=== PATIENT | male | born 1965 | race Caucasian/White ===

== ENCOUNTER 2019-09-24 10:29 | Outpatient (CLI) | payer SELFPAY ==
[~2019-09-24] VITALS: Ht 188 cm; Wt 118.2 kg
--- NOTE | ~2019-09-24 | HEMODYNAMI ---
PATIENT:KAREEM ABURTO MEDICAL RECORD: [id number] : 65 LOCATION:[facility] ADMISSION DATE: 09/24/19 Generatedon:09/24/201914:06 Patient name: KAREEM ABURTO Patient #: [id number] SSN: [id number] : 1965 Date of study: 09/24/2019 Page: Of Hemodynamic Procedure Report Patient Data Patient Demographics Procedure consent was obtained First Name: KAREEM Gender: Male Last Name: CRISELDA : 1965 [facility] Initial: TERESO Age: 53 year(s) Patient #: [id number] Race: SSN: [id number] Additional ID: [id number] Contact details [address]: [address] [place] [address] State: [place] City: [place] Zip code: [address] Past Medical History Allergies: No known allergies Admission Admission Data Admission Date: 09/24/2019 Admission Time: 10:29 Arrival Date: 09/24/2019 Arrival Time: 0:00 Admit Source: Other Height (in.): 74 BSA: 2.43 (m2) Height (cm.): 187.96 BMI: 33.38 (kg/m2) Weight (lbs.): 260 Weight (kg.): 117.93 Lab Results Lab Result Date: 09/24/2019 Lab Result Time: 0:00 Biochemistry Name Units Result Min Max BUN mg/dl 12 --(-*--)-- 7 18 Creatinine mg/dl 1.1 --(--*-)-- 0.6 1.3 eGFR ml/min 73.69942 *-(----)-- 90 120 NONAFRICAN CBC Name Units Result Min Max Hematocrit % 48.6 --(--*-)-- 42 54 Hemoglobin g/dl 16.2 --(--*-)-- 13.5 17.5 Procedure Procedure Types Cath Procedure Diagnostic Procedure LHC LHC w/Coronaries Procedure Description Procedure Date Procedure Date: 09/24/2019 Procedure Start Time: 13:45 Procedure End Time: 14:00 Procedure Staff Name Function Pierre Burden MD Performing Physician Mani Lynch RT Outbound Sales Consultant Iris Pacheco RT Monitor Anya Peñaloza RT Monitor [place] RT Scrub Sharon Silverman RT Scrub Vj Lee RN Nurse Indication Angina Procedure Data Cath Procedure Fluoroscopy Diagnostic fluoroscopy Total fluoroscopy Time: 2.8 time: 2.8 min min Diagnostic fluoroscopy Total fluoroscopy dose: 952 dose: 952 mGy mGy Contrast Material Contrast Material Type Amount (ml) Isovue 370 84 Entry Location Entry Primary Successful Side Size Upsize Upsize Entry Closure Villar ccessful Closure Location (Fr) 1 (Fr) 2 (Fr) Remarks Device Remarks Radial Right 6 Fr Mechanical artery Short Compression Estimated blood loss: 5 ml Diagnostic catheters Device Type Used For End Catheter Placement DIAGNOSTIC Grayson 110cm 5 Procedure Fr catheter ([id number]) Procedure Complications No complications Procedure Medications Medication Administration Route Dosage 0.9% NaCl I.V. 100 ml/hr Oxygen etCO2 Nasal cannula 2 l/min Heparin Flush Bag added to field 2 bags (1000units/500ml NS) Lidocaine 2% added to field 20 Radial Cocktail added to field 1 syringe (Verapamil 2mg/Nitro 400mcg/Heparin 1500units) Versed I.V. 2 mg Fentanyl I.V. 100 mcg Benadryl I.V. 50 mg Radial Cocktail I.A. 1 syringe (Verapamil 2mg/Nitro 400mcg/Heparin 1500units) Versed I.V. 1 mg Hemodynamics Rest BSA: 2.43 (m2) HGB: 16.2 (g/dl) O2 Consumption: Estimated: 267.54 (ml/min) O2 Co nsumption indexed: Estimated:110.1 (ml/min/m) Heart Rate: 47 (bpm) Pressure Samples Time Site Value (mmHg) Purpose Heart Use Rate(bpm) 13:50 LV 114/8,8 Snapshot 81 13:50 LV 113/8,9 Snapshot 82 13:50 AO 100/77(88) Pullback 82 Gradients Valve Time Site Site 2 Mean SEP/DFP Peak To Heart Use 1 (mmHg) (sec/min) Peak Rate (mmHg) (bpm) Aortic 13:50 LV AO 6 17 82 100/77(88) Calculations Valve P-P Mean Valve Index Valve Source Name Gradient Area Flow (cm2) Aortic 6 6 Snapshots Pre Cath Intra NCS Post Cath Vital Signs Time Heart Resp SPO2 etCO2 NIBP (mmHg) Rhythm Pain Sedation Rate (ipm) (%) (mmHg) Status Level (bpm) 13:30:15 61 18 97 0 131/85(97) NSR 0 (11) 10(A) , No pain 13:34:31 61 17 97 35.4 122/76(97) NSR 0 (11) 10(A) , No pain 13:38:43 71 22 96 31.6 133/82(99) NSR 0 (11) 10(A) , No pain 13:42:57 56 21 98 33.9 130/82(100) NSR 0 (11) 10(A) , No pain 13:47:09 69 17 96 30.1 120/87(107) NSR 0 (11) 10(A) , No pain 13:51:15 82 16 92 33.1 113/81(97) NSR 0 (11) 10(A) , No pain 13:55:23 84 28 92 32.4 121/80(113) NSR 0 (11) 9(A) , No pain 13:59:37 80 12 91 37.7 106/74(95) NSR 0 (11) 9(A) , No pain Medications Time Medication Route Dose Verified Delivered Reason Notes Effectiveness by by 13:43:52 0.9% NaCl I.V. 100 Vj Vj Per ml/hr Jesus Lee physician RN RN 13:44:00 Oxygen etCO2 2 l/min Vj Vj for low 02 Nasal Lorigan Lorigan sats cannula RN RN 13:44:10 Heparin Flush added 2 bags Vj Vj used for Bag to Lorigan Lorigan procedure (1000units/500ml field RN RN NS) 13:44:20 Lidocaine 2% added 20ml Vj Vj for local to vial Lorigan Lorigan anesthetic field RN RN 13:45:23 Radial Cocktail added 1 Vj Vj used for (Verapamil to syringe Lorigan Lorigan procedure 2mg/Nitro field RN RN 400mcg/Heparin 1500units) 13:45:32 Versed I.V. 2 mg Vj Vj for sedation Jesus Lee RN RN 13:45:41 Fentanyl I.V. 100 mcg Vj Vj for sedation Jesus Lee RN RN 13:45:54 Benadryl I.V. 50 mg Vj Vj Per Jesus Lee physician RN RN 13:49:19 Radial Cocktail I.A. 1 Vj Pierre for (Verapamil syringe Evelynigan Jenise vasodilation 2mg/Nitro RN 400mcg/Heparin 1500units) 13:50:53 Versed I.V. 1 mg Vj Vj for sedation Jesus Lee RN floor care specialist Log Time Note 13:14:16 Admit Source: Other 13:15:08 Procedure Status Elective Heart Cath (OP). 13:15:12 Iris Pacheco RT(R) sent for patient. Start room use. 13:15:15 Time tracking: Regular hours (M-F 7:00 - 5:00) 13:15:19 Plan of Care:Hemodynamics will remain stable., Cardiac rhythm will remain stable., Comfort level will be maintained., Respiratory function will remain adequate., Patient/ family verbilizes understanding of procedure., Procedure tolerated without complication., Recovers from procedure without complications.. 13:16:14 Informed consent obtained and on chart 13:16:22 Arrival Date: 09/24/2019 12:00:00 AM 13:16:45 Patient Height : 74 inches 13:16:54 Patient Weight : 260 lbs 13:17:07 Diagnostic Cath Status : Elective 13:17:30 Indication : Angina 13:20:12 Patient received from Pre/Post Procedure Room to CCL 1 Alert and oriented. Tansferred to table in Supine position. 13:20:14 Warm blankets applied, and ester hugger turned on for patient comfort. 13:20:15 Correct patient and procedure confirmed by team. 13:20:25 H&P Date Dictated: 09/24/2019 Within 30 days and on chart.. 13:20:27 Pre-procedure instructions explained to patient. 13:20:29 Pre-op teaching completed and patient verbalized understanding. 13:20:31 Family in waiting room. 13:20:33 Patient NPO since Midnight. 13:20:41 Patient allergic to Indocin 13:21:20 Lab Result : BUN 12 mg/dl 13:21:20 Lab Result : Creatinine 1.1 mg/dl 13:21:20 Lab Result : eGFR NONAFRICAN 73.08288 ml/min 13:21:20 Lab Result : Hemoglobin 16.2 g/dl 13:21:20 Lab Result : Hematocrit 48.6 % 13:21:25 Lab results completed and on chart. 13:21:41 Stress Test: yes; abnormal ? 13:21:45 Stress Test: no; N/A ? 13:21:59 Risk of Mortality: .1 13:22:02 Risk of blood transfusion: .1 13:22:04 Risk of MONIE: .5 13:22:16 Alarms reviewed by R. N. 13:22:16 Sharps counted by scrub and verified by R.N. 13:22:27 IV patent on arrival in left forearm with 0.9% NaCl at [facility]. 13:22:30 Patient pain scale 0/10 ?. 13:22:34 Pre procedure: right dorsailis pedis pulse 2+ Normal; easily identifiable; not easily obliterated 13:22:40 ECG and BP/O2 sat monitors applied to patient. 13:22:48 Is the patient allergic to Iodine/contrast media? No. 13:22:50 Was the patient premedicated? Yes 13:22:51 Is patient on blood thinner?No 13:22:56 ACC The patient was administered the following blood thiners within the last 24 hours: None 13:22:59 Patient diabetic? No. 13:23:01 If diabetic: On Metformin? N/A 13:23:08 Previous problem with sedation/anesthesia? No ? 13:23:09 Snore? No 13:23:10 Sleep apnea? No 13:23:12 Deviated septum? No 13:23:13 Opens mouth fully? Yes 13:23:14 Sticks out tongue? Yes 13:23:17 Airway obstruction? No ? 13:23:19 Dentures? No ? 13:23:58 ACC Patient presents with Stable Angina CCS Anginal Class 2--Slight limitation of ordinary activity. 13:24:17 Modified Georgi's test Ulnar < 7 seconds 13:24:29 Right Radial & Right Groin area was prepped with chlora-prep and draped in sterile fashion 13:29:16 Vital chart was started 13:29:28 Baseline sample Acquired. 13:29:36 Rhythm: sinus rhythm 13::38 Full Disclosure recording started 13:29:54 Use device set Radial Dx or PCI 13:29:56 ACIST Syringe (40018) opened to sterile field. 13:29:57 Medline Cath Pack ([id number]) opened to sterile field. 13:29:58 Bag Decanter (2002) opened to sterile field. 13:29:59 ACIST Hand Control (04630) opened to sterile field. 13:29:59 ACIST Manifold (14953) opened to sterile field. 13:30:05 MBrace Wrist Support ([id number]) opened to sterile field. 13:30:08 EMERALD Guide Wire (029-971) opened to sterile field. 13:30:09 SHEATH 6FR RAIN (3176117) opened to sterile field. 13:43:14 --------ALL STOP TIME OUT------ 13:43:14 Final Timeout: patient, procedure, and site verified with staff and physician. All members of the team are in agreement. 13:43:17 Right Radial & Right Groin site verified by team. 13:43:21 Fire Safety Assessment: A--An alcohol-based skin anteseptic being used preoperatively., C--Open oxygen or nitrous oxide is being used., D--An ESU, laser, or fiber-optic light is being used. 13:43:26 Physical assessment completed. ASA score P 2 - A patient with mild systemic disease as per Pierre Burden MD. 13:43:31 2) 60-89 Mildly reduced kidney function, and other findings (as for stage 1) point to kidney disease. 13:43:35 Maximum allowable contrast dose (3.7 X eGFR X 0.75)205 ml. 13:43:40 Sedation plan: IV Moderate Sedation Medication:Versed, Fentanyl 13:43:52 0.9% NaCl 100 ml/hr I.V. was administered by Vj Lee RN; Per physician; Verbal order read back and verified. 13:44:00 Oxygen 2 l/min etCO2 Nasal cannula was administered by Vj Lee RN; for low 02 sats; Verbal order read back and verified. 13:44:10 Heparin Flush Bag (1000units/500ml NS) 2 bags added to field was administered by Vj Lee RN; used for procedure; Verbal order read back and verified. 13:44:20 Lidocaine 2% 20ml vial added to field was administered by Vj Lee RN; for local anesthetic; Verbal order read back and verified. 13:45:07 Procedure started. 13:45:23 Radial Cocktail (Verapamil 2mg/Nitro 400mcg/Heparin 1500units) 1 syringe added to field was administered by Vj Lee RN; used for procedure; Verbal order read back and verified. 13:45:25 Local anesthetic to right radial artery with Lidocaine 2% by Pierre Burden MD.INITIAL ACCESS ONLY 13:45:32 Versed 2 mg I.V. was administered by Vj Lee RN; for sedation; Verbal order read back and verified. 13:45:41 Fentanyl 100 mcg I.V. was administered by Vj Lee RN; for sedation; Verbal order read back and verified. 13:45:54 Benadryl 50 mg I.V. was administered by Vj Lee RN; Per physician; Verbal order read back and verified. 13:46:06 A 6 Fr Short sheath was inserted into the Right Radial artery 13:46:22 Zero performed for pressure channel P1 13:46:33 A DIAGNOSTIC Grayson 110cm 5 Fr catheter ([id number]) was advanced over the wire and used for Procedure. 13:48:20 LV gram done using HENDERSON 13:48:24 Injector settings: Ml/sec: 5, Volume: 15, 13:49:19 Radial Cocktail (Verapamil 2mg/Nitro 400mcg/Heparin 1500units) 1 syringe I.A. was administered by Pierre Burden MD; for vasodilation; Verbal order read back and verified. 13:50:22 LV hemodynamics recorded. 13:50:46 EF : 55 % 13:50:53 Versed 1 mg I.V. was administered by Vj Lee RN; for sedation; Verbal order read back and verified. 13:51:07 LCA angiography performed. 13:52:36 RCA angiography performed. 13:52:45 ACCDominant side:Right 13:53:08 Catheter exchanged over wire. 13:54:15 GUIDE 6FR XBLAD 3.5 catheter ([id number]) opened to sterile field. 13:54:48 6 Fr XBLAD 3.5 guide catheter was inserted over the wire 13:55:36 LCA angiography performed. 13:56:45 Guide catheter removed. 13:56:59 Sheath removed intact; hemostasis achieved with Mechanical Compression to the Right Radial artery. 13:57:02 Procedure ended.(Physican Out) 13:57:21 Fluoroscopy time 02.80 minutes. 13:57:25 Fluoroscopy dose: 952 mGy 13:57:25 Flurop Dose total: 952 13:57:35 Dose Area Product 30110 mGy/cm. 13:57:41 Contrast amount:Isovue 370 84ml. 13:57:44 Maximum allowable dose exceeded? No. 13:57:45 Sharps counted by scrub and verified by R.N. 13:57:50 [place] band inflated with 9cc of air. 13:57:57 Post Procedure Pulses reassessed and unchanged 13:58:02 Post procedure: right dorsailis pedis pulse 2+ Normal; easily identifiable; not easily obliterated. 13:58:08 Post-procedure physical assessment completed. ASA score P 2 - A patient with mild systemic disease as per Pierre Burden MD. 13:58:13 Post procedure rhythm: unchanged. 13:58:17 Estimated blood loss: 5 ml 13:58:20 Post procedure instruction explained to patient.Patient verbalizes understanding. 13:58:22 Patient needs reinforcement of post procedure teaching. 13:59:44 Procedure and supply charges have been captured, reviewed, submitted and are correct. 13:59:49 Procedure Complication : No complications 13:59:54 Operative report dictated upon procedure completion. 13:59:55 See physician's report for complete and final results. 14:00:00 [facility] Findings: mild to moderate CAD (<70%) 14:00:05 Report given to Pre/Post Procedure Room. 14:00:08 Patient transfered to Pre/Post Procedure Room with Stretcher. 14:00:15 Vital chart was stopped 14:00:21 Procedure ended. 14:00:21 Full Disclosure recording stopped 14:04:02 End room use (Document Last) Device Usage Item Name Manufacture Quantity Catalog Hospital Part Current Minima l Lot# / Number Charge Number Stock Stock Serial# Code ACIST Acist 1 53067 [id number] 888144 [id number] 20 Syringe Hipui (97106) ActiveRain Inc Medline Medline 1 [id number] 38709 693073 5 Cath Pack ([id number]) Bag Microtek 1 621111 28215 599217 5 Decanter Medical Inc. (2002S) ACIST Hand Acist 1 26787 302126 463455 342870 5 Control Medical (12672) Systems Inc ACIST Acist 1 81104 827471 454397 154977 5 Manifold Medical (84448) Systems Inc MBrace Advanced 1 [id number] 320464 28441 305869 5 Wrist Vascular Support Dynamics ([id number]) EMERALD Cardinal 1 502-469 460161 140949 193752 5 Guide Wire Health (798-829) SHEATH 6FR Cardinal 1 2178810 628389 0772828 286459 5 [facility] Health (7252599) DIAGNOSTIC Terumo 1 46-4946 298605 929317 796012 5 Grayson 110cm 5 Fr catheter (326609) GUIDE 6FR Cardinal 1 [id number] 530182 146811 479053 10 XBLAD 3.5 Health catheter (58933552) Signature Audit [place] Stage Time Signature Unsigned Intra-Procedure 09/24/2019 Anya Peñaloza 2:05:19 PM RT(R) Intra-Procedure 09/24/2019 Vj 2:06:25 PM Jessu FISHER Intra-Procedure 09/24/2019 Pierre Phillips 2:06:49 PM Sebastian MALIK [facility] [address] [place] [address]
[~2019-09-24 10:29] MED LIST: HYDROCODONE-APA1 TAB PO; LISINOPRIL10 MG PO; SOMA350 MG PO
[2019-09-24 11:05] VITALS: BP 120/88; Ht 188 cm; Wt 118.2 kg
[2019-09-24 11:24] LABS: BASOPHILS 0.5 % (0-2); EOSINOPHILS 2.5 % (0-7); HEMATOCRIT 48.6 % (42.0-54.0); HEMOGLOBIN 16.2 g/dL (13.5-17.5); IMMATURE GRANULOCYTES 0.4 % (0-5); MCH 30.7 pg (26.0-34.0); MCHC 33.3 g/dL (31.0-37.0); MEAN PLATELET VOLUME 10.8 fL (7.4-10.4); MONOCYTES 12.4 % (2-11); NEUTROPHILS 51.2 % (40-80); RBC 5.28 10x6/uL (4.20-6.10); RDW 13.1 % (11.5-14.5); WBC 8.3 10x3/uL (4.8-10.8)
[2019-09-24 11:33] LABS: PLATELET COUNT 234 10x3/uL (130-400)
[2019-09-24 11:35] LABS: ANION GAP 10.8 mmol/L (8-16); CARBON DIOXIDE 26.3 mmol/L (21.0-32.0); CREATININE - SERUM 1.1 mg/dL (0.6-1.3); POTASSIUM - SERUM 4.1 mmol/L (3.5-5.1)
[2019-09-24 11:50] LABS: CHOL - HDL RATIO 5.2 ratio (2.3-4.9); LDL-HDL RATIO 2.7 ratio (1.5-3.5)
--- NOTE | 2019-09-24 14:10 | NUR ---
PATIENT ARRIVED TO ROOM 5, PLACED ON CM. VSS. RIGHT Z BAND IN PLACE, NO S/S OF BLEEDING OR HEMATOMA.
--- NOTE | 2019-09-24 14:25 | NUR ---
PATIENT AWAKE, EATING SANDWICH AND DRINKING JUICE. VSS ON ROOM AIR. NO N/V. NO C/O PAIN,NUMBNESS, OR TINGLING. RIGHT Z BAND IN PLACE, NO S/S OF BLEEDING OR HEMATOMA.
--- NOTE | 2019-09-24 14:55 | NUR ---
PATIENT AWAKE, VSS ON ROOM AIR. RIGHT Z BAND IN PLACE, 3CC OF AIR REMOVED PER PROTOCOL, NO S/S OF BLEEDING OR HEMATOMA. NO C/O PAIN,NUMBNESS, OR TINGLING. NO N/V.
--- NOTE | 2019-09-24 15:25 | NUR ---
REMAINING AIR REMOVED FROM Z BAND, NO S/S OF BLEEDING OR HEMATOMA. DRESSING APPLIED AT RIGHT RADIAL SITE IS CDI. VSS ON ROOM AIR. NO N/V. NO C/O PAIN, NUMBNESS, OR TINGLING. WRITTEN AND VERBAL DISCHARGE INSTRUCTIONS GIVEN TO PATIENT AND SPOUSE, BOTH VOICE UNDERSTANDING.
--- NOTE | 2019-09-24 15:45 | NUR ---
IV REMOVED, PATIENT DISCONNECTED FROM MONITORS TO GET DRESSED. RIGHT RADIAL SITE IS CDI, NO S/S OF BLEEDING OR HEMATOMA. PATIENT VOIDED WITHOUT DIFFICULTY.
--- NOTE | 2019-09-24 16:00 | NUR ---
PATIENT TRANSPORTED VIA WHEELCHAIR TO CAR WITH SPOUSE DRIVING, ALL BELONGINGS WITH PATIENT.
--- NOTE | 2019-09-25 14:03 | OP ---
PATIENT NAME: KAREEM ABURTO MEDICAL RECORD: [id number] :65 LOCATION:D.CAT ADMISSION DATE: SURGEON: AUBREY URBINA MD DATE OF OPERATION: 09/24/2019 PROCEDURE: Left heart catheterization, selective coronary angiography, right femoral artery approach. CATHETERS: A 5-Pashto sheath, 5/4 left and right Catherine, 5/4 pig. The procedure was well tolerated. The patient was returned to [place]. Sheath was removed. TR band was placed. FINDINGS: Left ventriculography in 30-degree HENDERSON view: Normal wall motion and normal systolic function. DICTATION ENDS HERE TRANSINT:[id number] Voice Confirmation ID: [id number] DOCUMENT ID: [id number] AUBREY URBINA MD at 1403 CC: [id number] DICTATION DATE: 09/24/19 1407 FOOD SERVICE LEAD: 09/24/19 1807 DEP CLI 09/24/19 [address] [id number] [place] [address]
--- NOTE | 2019-09-25 14:03 | OP ---
PATIENT NAME: KAREEM ABURTO MEDICAL RECORD: [id number] :65 LOCATION:D.CAT ADMISSION DATE: SURGEON: AUBREY URBINA MD DATE OF OPERATION: 09/24/2019 PROCEDURE: Left heart catheterization, selective coronary angiography, right radial approach. CATHETERS: Radial sheath, [place] catheter as well as an XB LAD catheter. The procedure was well tolerated. The patient returned to [place]. Sheath was removed. TR band was placed. FINDINGS: Left ventriculography in 30-degree HENDERSON view: Normal wall motion and normal systolic function. CORONARY ANATOMY: LEFT MAIN: Left main is free of disease. LAD: Free of disease in the diagonal system. CIRCUMFLEX: Free of disease in the marginal system. RIGHT CORONARY ARTERY: Codominant system. Right coronary has no significant stenosis. IMPRESSION: Normal LV systolic function. No significant coronary artery disease. TRANSINT:[id number] Voice Confirmation ID: [id number] DOCUMENT ID: [id number] AUBREY URBINA MD at 1403 CC: [id number] DICTATION DATE: 09/24/19 1408 REED DIPPER: 09/24/19 1755 DEP CLI 09/24/19 [facility] [address] [place] [address]
== END 2019-09-24 16:00 ==
LOC: D.CATH 10:29
PROVIDERS: ATTEND Internal Medicine Interventional Cardiology
DX: I25.119 Atherosclerotic heart disease of native coronary artery with unspecified angina pectoris (principal); I10 Essential (primary) hypertension

== ENCOUNTER → 2020-12-31 08:54 | Outpatient (CLI) | payer BC ==
[2019-09-24 11:05] VITALS: BMI 33.4
== END | disposition home or self-care (01) ==
LOC: D.HCCARDIO 08:54
PROVIDERS: ATTEND Internal Medicine Cardiovascular Disease
DX: I20.9 Angina pectoris, unspecified (principal)